=== PATIENT | female | born 1975 | race Caucasian/White ===

== ENCOUNTER 2021-08-07 11:14 | Emergency (ER) | payer OTHER ==
[~2021-08-07] VITALS: Ht 170.2 cm; Wt 60.8 kg
[2021-08-07] MEDS ORDERED: HYDROCODON-ACE1 EAC7 PO (13:23)
[2021-08-07] MEDS ORDERED: FLEXERIL PO (13:23)
[2021-08-07 13:30] VITALS: BP 146/83
== END 2021-08-07 13:30 | disposition home or self-care (01) ==
LOC: M.ERS 11:14
DX: S20.219A Contusion of unspecified front wall of thorax, initial encounter (principal); W18.39XA Other fall on same level, initial encounter; Y93.83 Activity, rough housing and horseplay; Y92.89 Other specified places as the place of occurrence of the external cause; Y99.8 Other external cause status